=== PATIENT | female | born 1965 ===

== ENCOUNTER 2022-11-18 12:34 | Inpatient (IN) | payer MEDICARE, MEDICAID ==
[2022-11-18] MEDS ORDERED: OLANZapine 7.5 MG TAB PO PRN (13:09)
[2022-11-18] MEDS ORDERED: OLANZapine 10 MG VIAL IM PRN (13:09)
[2022-11-18] MEDS ORDERED: MAG HYDROX/AL HYDROX/SIMETH 30 ML CUP PO PRN (13:09)
[2022-11-18] MEDS ORDERED: hydrOXYzine HCL 25 MG TAB PO PRN (13:09)
[2022-11-18] MEDS ORDERED: MAGNESIUM HYDROXIDE 2,400 MG/30 ML CUP PO PRN (13:09)
[2022-11-18] MEDS ORDERED: hydrOXYzine HCL 50 MG/ML 1 ML VIAL IM PRN (13:09)
[2022-11-18] MEDS ORDERED: ACETAMINOPHEN TAB 325 MG TAB PO PRN (13:09)
[2022-11-18] MEDS ORDERED: DEXTROSE 50% SYRINGE 50 ML IVP PRN ×2 (13:15)
[2022-11-18] MEDS ORDERED: OLANZapine 5 MG TAB PO PRN (13:28)
[2022-11-18 13:39] LABS: Glucose,Whole Blood 293 mg/dL (70-110)
[2022-11-18] MEDS: NICOTINE 14MG/24HR PATCH TRANSDERM SCH (14:26)
[2022-11-18 17:49] LABS: Glucose,Whole Blood 200 mg/dL (70-110)
[2022-11-18] MEDS: INSULIN ASPART (NovoLOG) 100 UNIT/ML VIAL SQ SCH ×2 (17:57→20:24)
[2022-11-18 18:30] LABS: Glucose,Whole Blood 216 mg/dL (70-110)
--- NOTE | 2022-11-18 19:30 | P.CONS ---
History of Present Illness - Reason for Consult Consult date: 11/18/22 - History of Present Illness 49-year-old female with PMH of diabetes mellitus, deafness, blindness, GERD presents to [facility] for mental health concerns. She has been admitted to the medical unit for further management of symptoms. [facility] has been consulted for medical management of this patient. A-team was called on this patient. She was sitting eating dinner when she started to feel lightheaded and nauseated. She was witnessed falling back, someone was able to catch her. Patient reports never losing consciousness. She denies any head trauma. She denies any shaking of extremities, bladder or bowel incontinence, tongue biting. She reports suprapubic discomfort and left-sided flank. She reports dysuria. She denies any headache, fever or chills, cough, chest pain, shortness breath, palpitations, changes in bowel habits. No changes in appetite or weight. She denies any numbness/weakness/tingling of the extremities. Her blood pressure was 112/62, pulse of 69, respiratory rate of 16 and O2 saturation of 95% on room air. Accu-Chek was 216. There is no blood work to review. Pertinent positives and negatives as discussed in HPI, a complete review of systems was performed and all other systems are negative. General: non toxic, no distress, appears at stated age Derm: warm, dry Head: atraumatic, normocephalic, symmetric Eyes: EOMI, no lid lag, anicteric sclera Mouth: no lip lesion, mucus membranes moist Cardiovascular: S1S2 reg, no murmur Lungs: CTA bilateral, no rhonchi, no rales , no accessory muscle use Abdominal: soft, suprapubic tenderness to palpation, no guarding, no appreciable organomegaly, right CVA tenderness Ext: no gross muscle atrophy, no edema, no contractures Neuro: CN II-XI grossly intact except decreased hearing and vision, no focal neuro deficits Psych: Alert, oriented, appropriate affect Presyncope Dysuria and right flank pain Diabetes mellitus Based on my assessment of this patient, this patient meets a high complexity level of care. Patient has an acute diagnosis of presyncope that poses a threat to life or bodily function. Her [id number] glucose was 260. Her vital signs appear stable. She complains of right flank pain and dysuria. Urinalysis with reflex to culture will be ordered. CBC and BMP will be ordered. EKG will be ordered. Troponin will be ordered. Patient be placed on fall precautions. I have reviewed the following information security consultant notes: I have reviewed the results of the following tests: Ltqgv-[id number] glucose as above. I have ordered the following tests: CBC, BMP, EKG, troponin, urinalysis with reflex to culture. I have discussed the care of this patient with the following independent historian: I have independently interpreted the following test below: I have discussed the management of this patient with the following physician: Past Medical History Past Medical History: COPD, Eye Disorder, GERD/Reflux, Hearing Disorder / Deafness, Hypertension History of Any Multi-Drug Resistant Organisms: None Reported Past Surgical History: Unable to Obtain Past Anesthesia/Blood Transfusion Reactions: Unable to Obtain Past Psychological History: Anxiety, Depression Smoking Status: Current every day smoker Past Alcohol Use History: Occasional, Rare Past Drug Use History: None Reported Medications and Allergies Home Medications Medication Instructions Recorded Confirmed Type Insulin Glargine [Lantus Vial] 27 units SQ HS 11/18/22 11/18/22 History Omeprazole [PriLOSEC] 20 mg PO DAILY 11/18/22 11/18/22 History QUEtiapine [SEROquel] 50 mg PO HS 11/18/22 11/18/22 History metFORMIN HCL [Glucophage] 500 mg PO BID 11/18/22 11/18/22 History Allergies Allergy/AdvReac Type Severity Reaction Status Date / Time acetaminophen [From Percocet] Allergy Rash/Hives Verified 11/18/22 12:46 aspirin [From Percodan] Allergy Rash/Hives Verified 11/18/22 12:46 oxycodone [From Percocet] Allergy Rash/Hives Verified 11/18/22 12:46 Physical Exam Vitals: Vital Signs Temp Pulse Resp BP Pulse Ox 11/18/22 15:09 97.4 F L 73 16 111/60 97 Intake and Output 11/18/22 11/18/22 11/18/22 06:59 14:59 22:59 Other: Weight 83 kg 84.17 kg Results Labs: Abnormal Lab Results - Last 24 Hours (Table) 11/18/22 11/18/22 11/18/22 Range/Units 13:36 17:46 18:28 POC Glucose (mg/dL) 293 H 200 H 216 H (70-110) mg/dL
[2022-11-18 19:48] LABS: HCT 39.5 % (34.0-46.0); HGB 13.7 gm/dL (11.4-16.0); MCH 30.2 pg (25.0-35.0); MCHC 34.6 g/dL (31.0-37.0); MCV 87.3 fL (80.0-100.0); Mean Platelet Volume 8.1; Platelet Count 270 k/uL (150-450); RBC 4.52 m/uL (3.80-5.40); RDW 11.9 % (11.5-15.5); WBC 6.6 k/uL (3.8-10.6)
[2022-11-18 19:56] LABS: African American GFR (CKD) 75 (>60 ml/min/1.73 sqM); Anion Gap 5 mmol/L; Blood Urea Nitrogen 18 mg/dL (7-17); Calcium 9.4 mg/dL (8.4-10.2); Carbon Dioxide 28 mmol/L (22-30); Chloride 102 mmol/L (98-107); Glucose 220 mg/dL (74-99); Non-African American GFR(CKD) 65 (>60 ml/min/1.73 sqM); Potassium 4.3 mmol/L (3.5-5.1); Sodium 135 mmol/L (137-145)
[2022-11-18 19:59] LABS: Glucose,Whole Blood 241 mg/dL (70-110)
[2022-11-18 20:12] LABS: Appearance,Urine Clear (Clear); Bilirubin,Urine Negative (Negative); Blood,Urine Negative (Negative); Color,Urine Yellow; Glucose,Urine (UA) 3+ (Negative); Ketones,Urine Negative (Negative); Leukocyte Esterase,Urine Small (Negative); Mucus,Urine Rare /hpf; Nitrite,Urine Negative (Negative); Protein,Urine Negative (Negative); RBC,Urine 1 /hpf (0-5); Specific Gravity,Urine 1.015 (1.001-1.035); Squamous Epithelial Cell,Urine 1 /hpf (0-4); Urobilinogen,Urine <2.0 mg/dL (<2.0); WBC,Urine 3 /hpf (0-5)
[2022-11-18] MEDS: metFORMIN 500 MG TAB PO SCH (20:27)
[2022-11-18] MEDS: INSULIN DETEMIR (LEVEMIR) 100 UNIT/ML SYR SQ SCH (20:27)
[2022-11-18] MEDS ORDERED: QUEtiapine 50 MG TAB PO SCH (21:00)
[2022-11-19 07:33] LABS: Glucose,Whole Blood 176 mg/dL (70-110)
[2022-11-19] MEDS ORDERED: ONDANSETRON ODT 4 MG TAB PO PRN (08:03)
[2022-11-19] MEDS: metFORMIN 500 MG TAB PO SCH ×3 (09:25→20:50)
[2022-11-19] MEDS: INSULIN ASPART (NovoLOG) 100 UNIT/ML VIAL SQ SCH ×5 (09:25→20:47)
[2022-11-19 09:47] LABS: Chol/HDL Ratio 6.66 Ratio; LDL Cholesterol,Calculated 132.6 mg/dL (0.0-131.0)
[2022-11-19] MEDS: PANTOPRAZOLE 40 MG TABLET PO SCH (10:43)
[2022-11-19] MEDS: NICOTINE 14MG/24HR PATCH TRANSDERM SCH (10:43)
[2022-11-19 11:24] LABS: Glucose,Whole Blood 225 mg/dL (70-110)
--- NOTE | 2022-11-19 12:20 | P.HP ---
Psychiatric H&P - . H&P Date: 11/19/22 History & Physical: Allergies Allergy/AdvReac Type Severity Reaction Status Date / Time acetaminophen From Percocet Allergy Rash/Hives Verified 11/18/22 12:46 aspirin From Percodan Allergy Rash/Hives Verified 11/18/22 12:46 oxycodone From Percocet Allergy Rash/Hives Verified 11/18/22 12:46 Vital Signs Temp 98.1 F 11/19/22 07:06 Pulse 65 11/19/22 07:06 Resp 19 11/19/22 07:06 BP 115/61 11/19/22 07:06 Pulse Ox 94 L 11/19/22 07:06 FiO2 Intake & Output 11/18/22 11/19/22 11/19/22 18:59 06:59 18:59 Weight 84.17 kg Laboratory Last Values WBC 6.6 k/uL (3.8-10.6) 11/18/22 19:21 RBC 4.52 m/uL (3.80-5.40) 11/18/22 19:21 Hgb 13.7 gm/dL (11.4-16.0) 11/18/22 19:21 Hct 39.5 % (34.0-46.0) 11/18/22 19:21 MCV 87.3 fL (80.0-100.0) 11/18/22 19:21 MCH 30.2 pg (25.0-35.0) 11/18/22 19:21 MCHC 34.6 g/dL (31.0-37.0) 11/18/22 19:21 RDW 11.9 % (11.5-15.5) 11/18/22 19:21 Plt Count 270 k/uL (150-450) 11/18/22 19:21 MPV 8.1 11/18/22 19:21 Sodium 135 mmol/L (137-145) L 11/18/22 19:21 Potassium 4.3 mmol/L (3.5-5.1) 11/18/22 19:21 Chloride 102 mmol/L (98-107) 11/18/22 19:21 Carbon Dioxide 28 mmol/L (22-30) 11/18/22 19:21 Anion Gap 5 mmol/L 11/18/22 19:21 BUN 18 mg/dL (7-17) H 11/18/22 19:21 Creatinine 0.97 mg/dL (0.52-1.04) 11/18/22 19:21 Est GFR (CKD-EPI)AfAm 75 (>60 ml/min/1.73 sqM) 11/18/22 19:21 Est GFR (CKD-EPI)NonAf 65 (>60 ml/min/1.73 sqM) 11/18/22 19:21 Glucose 220 mg/dL (74-99) H 11/18/22 19:21 POC Glucose (mg/dL) 225 mg/dL (70-110) H 11/19/22 11:21 POC Glu Research Epidemiologist Rao Schafer 11/19/22 11:[address] Glu mg/dL 235 mg/dL 11/18/22 19:21 Hemoglobin A1c 9.8 % (<=6.0) H 11/18/22 19:21 Calcium 9.4 mg/dL (8.4-10.2) 11/18/22 19:21 Troponin I <0.012 ng/mL (0.000-0.034) 11/18/22 19:25 Triglycerides 174.00 mg/dL (0.00-149.00) H 11/18/22 19:21 Cholesterol 197.00 mg/dL (0.00-200.00) 11/18/22 19:21 LDL Cholesterol, Calc 132.6 mg/dL (0.0-131.0) H 11/18/22 19:21 VLDL Cholesterol, Calc 34.80 mg/dL (5.00-40.00) 11/18/22 19:21 HDL Cholesterol 29.60 mg/dL (40.00-60.00) L 11/18/22 19:21 Cholesterol/HDL Ratio 6.66 Ratio 11/18/22 19:21 TSH 2.810 UIU/ML (0.350-5.500) 11/18/22 19:21 Urine Color Yellow 11/18/22 18:41 Urine Appearance Clear (Clear) 11/18/22 18:41 Urine pH 5.0 (5.0-8.0) 11/18/22 18:41 Ur Specific [place] 1.015 (1.001-1.035) 11/18/22 18:41 Urine Protein Negative (Negative) 11/18/22 18:41 Urine Glucose (UA) 3+ (Negative) H 11/18/22 18:41 Urine Ketones Negative (Negative) 11/18/22 18:41 Urine Blood Negative (Negative) 11/18/22 18:41 Urine Nitrite Negative (Negative) 11/18/22 18:41 Urine Bilirubin Negative (Negative) 11/18/22 18:41 Urine Urobilinogen <2.0 mg/dL (<2.0) 11/18/22 18:41 Ur Leukocyte Esterase Small (Negative) H 11/18/22 18:41 Urine RBC 1 /hpf (0-5) 11/18/22 18:41 Urine WBC 3 /hpf (0-5) 11/18/22 18:41 Ur Squamous Epith Cells 1 /hpf (0-4) 11/18/22 18:41 Urine Mucus Rare /hpf (None) H 11/18/22 18:41 11/19/22 12:14 IDENTIFYING DATA: Patient is a 49-year-old female, currently lives with her boyfriend and his mother in a trailer, she has 2 kids, she collects Social Security disability. HPI: Patient presented to the hospital as a transfer from [facility] yesterday. According to APS report patient apparently was endorsing suicidal ideations to overdose on her pills. Patient was also petitioned by a nurse Ingrid before being transferred to the mental health unit. Patient is legally blind and deaf. She uses a walker. She was seen sitting at the bedside today and was fairly pleasant and polite. She was agreeable to speak to food writer today and claims that she has a history of bipolar. She claims that she is feeling fairly depressed lately. Claims that she does have a history of manic episodes. She states she has been off of her Seroquel for "a few weeks" as she has run out of the medications. She claims that she wanted to get back on her medications. She claims that she is feeling depressed, endorsing anxiety as well. States that she is not having suicidal thoughts at this time however was feeling it. She claims that she her main stressor at this time is being blind and having the disability of not being able to walk around and get around safely. She claims that her boyfriend is supportive of her. Claims that her sleep is better with the medications however was poor recently, fair appetite. Patient denies any suicidal or homicidal ideations intent or plan. At this time patient denies any auditory or visual hallucinations. Patient denies any flight of ideas racing thoughts and increased in goal directed behavior. Patient admits to using cigarettes only, no other recreational drug use. PAST PSYCHIATRIC HISTORY: Patient states that she has a history of bipolar disorder. She claims that she is previously on Celexa, latuda, seroquel. Claims that her last psychiatric hospitalization was in April 2019 where she was admitted in [place]. Patient denies any psychiatric outpatient follow-up. She claims that she had 1 suicide attempt in 2019 when she overdosed on pills. PMH: As per internal medicine note ALLERGIES: as per EMR CHEMICAL DEPENDENCY HISTORY: as per HPI FAMILY PSYCHIATRIC/SUBSTANCE USE HISTORY: Claims that both her sister and brother have bipolar disorder SOCIAL HISTORY: Patient was born and raised in [place] and also in [place]. Claims that she completed high school and some college. States that she has 2 kids, she currently lives with her boyfriend and his mom in a trailer. She collects Social Security disability. She denies any legal history. MENTAL STATUS EXAM: General Appearance: Patient appears to be mildly overweight, sitting on the bed, stated age is alert, directable, and attempts to cooperate. Patient appears to have fair hygiene and grooming. Behavior: Patient is seated without any agitated behavior. Attempts to cooperate. Speech: Patient's speech is fluent and nonpressured. Mood/Affect: Patient reports their mood is depressed and anxious, affect is congruent and constricted. Suicidality/Homicidality: Patient denies having any homicidal ideation intent or plan. Denies any suicidal ideations intent or plan Perceptions: Patient denies any visual hallucinations and denies any auditory hallucinations Though content/process: There is no evidence of any delusional thought content and thought process is linear and goal-directed. Focus on her medications and also discharge Memory and concentration: AOX3, grossly intact for the purposes of this session. Can spell "WORLD" backwards Judgment and insight: Poor STRENGTHS/WEAKNESSES: strength is that patient is resilient. Weakness is that patient has poor judgment and is blind and deaf INTELLECT: average IMPRESSIONS: Bipolar disorder, current episode depressed Anxiety disorder unspecified Nicotine dependence PLAN: -Patient is admitted under voluntary status to MHU for stabilization of psychiatric symptoms and safety. Patient has signed adult voluntary form and medication consent and is placed in patient's chart. -Medications : Will start patient on Seroquel 75 mg daily at bedtime for mood stabilization/insomnia, Zoloft 25 mg daily for mood/anxiety, BuSpar 7.5 mg daily for anxiety. -Vistaril and Zyprexa PRN for agitation/aggression -Patient was informed of the risks, benefits and side effects of the medication and patient verbally consented to taking the medications. Patient signed med consent form and was placed in chart. -Internal Medicine consult to perform medical evaluation and physical. -NRT - nicotine patch -SW on board for discharge planning. Encourage patient to participate in groups to work on coping skills. patient will need home health services and likely a home OT evaluation due to her blindness and deafness.
[2022-11-19] MEDS: busPIRone HCl 5 MG TAB PO SCH (13:01)
[2022-11-19 13:07] LABS: Glucose,Whole Blood 229 mg/dL (70-110)
[2022-11-19] MEDS: SERTRALINE 25 MG TAB PO SCH (15:48)
[2022-11-19 20:13] LABS: Glucose,Whole Blood 302 mg/dL (70-110)
[2022-11-19] MEDS: INSULIN DETEMIR (LEVEMIR) 100 UNIT/ML SYR SQ SCH (20:47)
[2022-11-19] MEDS ORDERED: QUEtiapine 25 MG TAB PO SCH (21:00)
[2022-11-20 08:03] LABS: Glucose,Whole Blood 109 mg/dL (70-110)
[2022-11-20] MEDS: busPIRone HCl 5 MG TAB PO SCH (08:38)
[2022-11-20] MEDS: metFORMIN 500 MG TAB PO SCH ×2 (08:38→21:13)
[2022-11-20] MEDS: NICOTINE 14MG/24HR PATCH TRANSDERM SCH (08:38)
[2022-11-20] MEDS: PANTOPRAZOLE 40 MG TABLET PO SCH (08:38)
[2022-11-20] MEDS: INSULIN ASPART (NovoLOG) 100 UNIT/ML VIAL SQ SCH ×4 (08:38→21:16)
[2022-11-20] MEDS: SERTRALINE 25 MG TAB PO SCH (08:39)
--- NOTE | 2022-11-20 10:14 | P.PN ---
Progress Note - Text Progress Note Date: 11/20/22 Interval history: Patient was seen lying in bed this morning and was directable and agreeable to speak with va underwriter. Patient claims that she was sleeping "on and off" last night and we spoke more about her medications. He spoke about increasing the [place] which she was okay with. She claims that she is also feeling uncomfortable in her abdomen and her pelvic region as well and states that she has had urinary tract infections before and claims that she feels she has one at this time however failed to give specifics. She states that it does have a certain order. Claims that she did give a urine sample again this morning. She claims that she has been eating fairly, mood has been mildly improving since yesterday. Store Planner addressed further concerns and answered questions about her medications and treatment and also discharge planning. At this time patient denies any suicidal or homicidal ideations intent or plan. Denies any Auditory or visual hallucinations. Patient denies any side effects from the medications and has been compliant with meds. Mental status exam: General Appearance: Patient appears to be living in bed, stated age is alert, directable, and cooperative. Behavior: No agitated behavior. Patient is calm and directable cooperative. Speech: Patient's speech is fluent and nonpressured. Mood/Affect: Mood is improving mildly, affect is congruent and constricted. Suicidality/Homicidality: Patient denies having any suicidal or homicidal ideation intent or plan. Perceptions: Patient denies any auditory or visual hallucinations. Though content/process: There is no evidence of any delusional thought content and thought process is linear and goal-directed. [place]. Focused on her symptoms. Memory and concentration: AOX3, grossly intact for the purposes of this session Judgment and insight: improving mildly Assessment/Plan: Continue with current diagnosis. Patient continues to meet criteria for inpatient psychiatric admission for symptom stabilization and safety.Patient will be maintained on current psychotropic medication regimen, with the exception of increasing Seroquel to 100 mg daily at bedtime for mood stabilization/insomnia, increasing BuSpar to 10 mg daily for anxiety, empirically added antibiotic Macrobid 100 mg twice a day for 7 days for UTI, awaiting urine analysis. Monitor for medication compliance and for any psychotropic medication side effects. Will continue to monitor ongoing response to treatment. Encouraged participation in milieu.
[2022-11-20] MEDS: NITROFURANTOIN MONOHYD/M-CRYST 100 MG CAP PO SCH ×2 (11:05→21:18)
[2022-11-20 12:56] LABS: Glucose,Whole Blood 130 mg/dL (70-110)
[2022-11-20 18:01] LABS: Glucose,Whole Blood 147 mg/dL (70-110)
[2022-11-20 20:17] LABS: Glucose,Whole Blood 230 mg/dL (70-110)
[2022-11-20] MEDS: INSULIN DETEMIR (LEVEMIR) 100 UNIT/ML SYR SQ SCH (21:13)
[2022-11-20] MEDS: QUEtiapine 100 MG TAB PO SCH (21:13)
[2022-11-21 07:39] LABS: Glucose,Whole Blood 112 mg/dL (70-110)
[2022-11-21] MEDS: INSULIN ASPART (NovoLOG) 100 UNIT/ML VIAL SQ SCH ×4 (08:42→20:02)
[2022-11-21] MEDS: metFORMIN 500 MG TAB PO SCH ×2 (08:46→21:11)
[2022-11-21] MEDS: PANTOPRAZOLE 40 MG TABLET PO SCH (08:46)
[2022-11-21] MEDS: SERTRALINE 25 MG TAB PO SCH (08:46)
[2022-11-21] MEDS: busPIRone HCl 10 MG TAB PO SCH (08:46)
[2022-11-21] MEDS: NITROFURANTOIN MONOHYD/M-CRYST 100 MG CAP PO SCH ×2 (08:47→21:11)
[2022-11-21] MEDS: NICOTINE 14MG/24HR PATCH TRANSDERM SCH (10:29)
--- NOTE | 2022-11-21 12:08 | P.PN ---
Progress Note - Text Progress Note Date: 11/21/22 Interval history: Patient was seen l sitting in on group today and was agreeable to speak to marvin roach. Patient claims that her mood has been mildly improving and also her anxiety. She states that she is finding it a little distressing walking to the hallways and not knowing where she was going. She claims that she feels her medications are heading in a good direction. She continues to ask several questions about her potential discharge in the planning associated with it. She also states that she wants to speak with a social service manager. Claims that she does not have a ride back home. States that she was able to sleep fairly last night. Continues to have minor urinary symptoms however does state overall they're improving mildly since yesterday. She claims that she has been eating fairly, mood has been mildly improving since yesterday. At this time patient denies any suicidal or homicidal ideations intent or plan. Denies any Auditory or visual hallucinations. Patient denies any side effects from the medications and has been compliant with meds. Mental status exam: General Appearance: Patient appears to be living in bed, stated age is alert, directable, and cooperative. Behavior: No agitated behavior. Patient is calm and directable cooperative. Speech: Patient's speech is fluent and nonpressured. Mood/Affect: Mood is improving mildly, affect is congruent improving Suicidality/Homicidality: Patient denies having any suicidal or homicidal ideation intent or plan. Perceptions: Patient denies any auditory or visual hallucinations. Though content/process: There is no evidence of any delusional thought content and thought process is linear and goal-directed. Focused on discharge planning Memory and concentration: AOX3, grossly intact for the purposes of this session Judgment and insight: improving mildly Assessment/Plan: Continue with current diagnosis. Patient continues to meet criteria for inpatient psychiatric admission for symptom stabilization and safety.Patient will be maintained on current psychotropic medication regimen, continue with Seroquel 100 mg daily at bedtime for mood stabilization/insomnia, BuSpar 10 mg daily for anxiety, continue with Macrobid 100 mg twice a day for 7 days for UTI. increased zoloft to 50 mg daily for mood/anxiety. Monitor for medication compliance and for any psychotropic medication side effects. Will continue to monitor ongoing response to treatment. Encouraged participation in milieu.
[2022-11-21 12:41] LABS: Glucose,Whole Blood 123 mg/dL (70-110)
[2022-11-21 18:03] LABS: Glucose,Whole Blood 163 mg/dL (70-110)
[2022-11-21 19:51] LABS: Glucose,Whole Blood 209 mg/dL (70-110)
[2022-11-21] MEDS: INSULIN DETEMIR (LEVEMIR) 100 UNIT/ML SYR SQ SCH (21:11)
[2022-11-21] MEDS: QUEtiapine 100 MG TAB PO SCH (21:11)
[2022-11-22 07:50] LABS: Glucose,Whole Blood 122 mg/dL (70-110)
[2022-11-22] MEDS: INSULIN ASPART (NovoLOG) 100 UNIT/ML VIAL SQ SCH ×4 (08:01→21:24)
[2022-11-22] MEDS: PANTOPRAZOLE 40 MG TABLET PO SCH (08:40)
[2022-11-22] MEDS: busPIRone HCl 10 MG TAB PO SCH ×2 (08:40→21:23)
[2022-11-22] MEDS: metFORMIN 500 MG TAB PO SCH ×2 (08:40→21:24)
[2022-11-22] MEDS: NITROFURANTOIN MONOHYD/M-CRYST 100 MG CAP PO SCH ×2 (08:41→21:24)
[2022-11-22] MEDS: NICOTINE 14MG/24HR PATCH TRANSDERM SCH (08:41)
[2022-11-22] MEDS: SERTRALINE 50 MG TAB PO SCH (08:41)
--- NOTE | 2022-11-22 11:21 | P.PN ---
Progress Note - Text Progress Note Date: 11/22/22 Interval history: Patient was seen sitting at the side of her bed today and was scribbled typewriter tester. Patient claims that she is feeling a bit anxious today, continues to have several questions about her discharge planning. States that her mood has been gradually improving. States that she did not sleep well last night. We spoke about other methods to help her with sleep and patient states that melatonin has not helped her in the past. Patient claims that her urinary symptoms are mildly improving since yesterday and we spoke about continuing on with the antibiotic. States that she is trying to go to some groups however was worried about whether she is making enough groups or not. Continues to find it difficult to navigate around the unit due to her blindness. At this time patient denies any suicidal or homicidal ideations intent or plan. Denies any Auditory or visual hallucinations. Patient denies any side effects from the medications and has been compliant with meds. Mental status exam: General Appearance: Patient appears to be living in bed, stated age is alert, d irectable, and cooperative. Behavior: No agitated behavior. Patient is calm and directable cooperative. Speech: Patient's speech is fluent and nonpressured. Mood/Affect: Mood is improving mildly, affect is congruent improving Suicidality/Homicidality: Patient denies having any suicidal or homicidal ideation intent or plan. Perceptions: Patient denies any auditory or visual hallucinations. Though content/process: There is no evidence of any delusional thought content and thought process is linear and goal-directed. Focused on discharge planning Memory and concentration: AOX3, grossly intact for the purposes of this session Judgment and insight: improving mildly Assessment/Plan: Continue with current diagnosis. Patient continues to meet criteria for inpatient psychiatric admission for symptom stabilization and safety.Patient will be maintained on current psychotropic medication regimen, continue with Seroquel 100 mg daily at bedtime for mood stabilization/insomnia, increase BuSpar 10 mg BID for anxiety, continue with Macrobid 100 mg twice a day for 7 days for UTI. continue zoloft 50 mg daily for mood/anxiety. Monitor for medication compliance and for any psychotropic medication side effects. Will continue to monitor ongoing response to treatment. Encouraged participation in milieu. SW to plan for discharge tomorrow back home with follow up in [facility].
[2022-11-22 12:38] LABS: Glucose,Whole Blood 128 mg/dL (70-110)
[2022-11-22 13:54] VITALS: BMI 30.5
[2022-11-22 17:33] LABS: Glucose,Whole Blood 165 mg/dL (70-110)
[2022-11-22 20:12] LABS: Glucose,Whole Blood 198 mg/dL (70-110)
[2022-11-22] MEDS: QUEtiapine 100 MG TAB PO SCH (21:24)
[2022-11-22] MEDS: INSULIN DETEMIR (LEVEMIR) 100 UNIT/ML SYR SQ SCH (21:25)
[2022-11-23 07:09] VITALS: BP 123/55; PULSE 52; RESP 16; TEMP 97.9
[2022-11-23 07:48] LABS: Glucose,Whole Blood 115 mg/dL (70-110)
[2022-11-23] MEDS: INSULIN ASPART (NovoLOG) 100 UNIT/ML VIAL SQ SCH ×2 (08:35→13:47)
[2022-11-23] MEDS: NITROFURANTOIN MONOHYD/M-CRYST 100 MG CAP PO SCH (08:36)
[2022-11-23] MEDS: busPIRone HCl 10 MG TAB PO SCH (08:36)
[2022-11-23] MEDS: NICOTINE 14MG/24HR PATCH TRANSDERM SCH (08:36)
[2022-11-23] MEDS: PANTOPRAZOLE 40 MG TABLET PO SCH (08:36)
[2022-11-23] MEDS: metFORMIN 500 MG TAB PO SCH (08:36)
[2022-11-23] MEDS: SERTRALINE 50 MG TAB PO SCH (08:36)
[2022-11-23] MEDS ORDERED: risperiDONE 1 MG TAB PO SCH (10:30)
--- NOTE | 2022-11-23 10:37 | P.DS ---
Providers Date of admission: 11/18/22 13:03 Expected date of discharge: 11/23/22 Attending physician: Geoffrey Novoa MD Consults: 11/18/22 13:09 Consult Physician Routine Consulting Provider: Preston Fermin Consult Reason/Comments: H and P Do you want consulting provider notified?: Yes Primary care physician: Yannick Hong - Discharge Diagnosis(es) (1) Bipolar disorder current episode depressed Current Visit: Yes Status: Acute Priority: High (2) Anxiety disorder Current Visit: Yes Status: Acute Priority: High (3) Nicotine dependence Current Visit: Yes Status: Acute Priority: Low (4) Legal blindness Current Visit: Yes Status: Acute Priority: Medium (5) Deafness Current Visit: Yes Status: Acute Priority: Medium Hospital Course: Admission HPI: Admission note was completed by commercial real estate underwriter "Patient is a 49-year-old female, currently lives with her boyfriend and his mother in a trailer, she has 2 kids, she collects Social Security disability. Patient presented to the hospital as a transfer from [facility] yesterday. According to APS report patient apparently was endorsing suicidal ideations to overdose on her pills. Patient was also petitioned by a nurse Ingrid before being transferred to the mental health unit. Patient is legally blind and deaf. She uses a walker. She was seen sitting at the bedside today and was fairly pleasant and polite. She was agreeable to speak to commercial real estate underwriter today and claims that she has a history of bipolar. She claims that she is feeling fairly depressed lately. Claims that she does have a history of manic episodes. She states she has been off of her Seroquel for "a few weeks" as she has run out of the medications. She claims that she wanted to get back on her medications. She claims that she is feeling depressed, endorsing anxiety as well. States that she is not having suicidal thoughts at this time however was feeling it. She claims that she her main stressor at this time is being blind and having the disability of not being able to walk around and get around safely. She claims that her boyfriend is supportive of her. Claims that her sleep is better with the medications however was poor recently, fair appetite. Patient denies any suicidal or homicidal ideations intent or plan. At this time patient denies any auditory or visual hallucinations. Patient denies any flight of ideas racing thoughts and increased in goal directed behavior. Patient admits to using cigarettes only, no other recreational drug use." Hospital course: Upon admission to the unit patient was directable and agreeable to commence treatment and signed adult voluntary form. Patient got along well with other patients on the unit and followed unit protocol. Patient was compliant with the medications and denied any side effects throughout hospital course. Patient was started on Seroquel and increased to a dose of 100 mg daily at bedtime for bipolar disorder/mood stabilization/insomnia, BuSpar increased to a dose of 10 mg 3 times a day for anxiety, Zoloft 50 mg daily for mood/anxiety. Patient spoke of her stressors and engaged in therapy both group and individual. Patient was also seen by medical team for history and physical exam. Patient was treated empirically for UTI with Macrobid, symptoms were gradually improving and will be continued on for 5 more days after discharge. if her uti/urinary sx are not resolving then she was asked to f/u with her primary care doctor. Throughout the course of the hospitalization patient gradually improved with regards to mood, anxiety, suicidal thoughts, sleep and became more future oriented with improved insight and judgment. On the day of discharge patient denied any suicidal or homicidal ideations intent or plan denied any auditory or visual hallucinations. Patient endorsed wanting to live for her life and her health. The patient denied any access to guns or weapons. Patient denied any paranoia and did not endorse any delusions. Patient does not have a significant history of substance abuse and was counseled on abstaining from all substances including alcohol and marijuana. Patient was also counseled on the medications and need for regular compliance and was encouraged to follow-up with their outpatient appointment for mental health and also for primary care. Prior to discharge a family meeting will be arranged by social scientist to answer any questions and ensure safety upon discharge. Patient will be following up with [facility] [place] and social work will help with arranging appointments and also potentially help patient with arranging home health services. Patient also need to have a ride back to her home today from the hospital. Mental status exam: General Appearance: Patient appears to be mildly overweight, wearing glasses, stated age is alert, pleasant, and cooperative. Patient is in no acute distress and has improved hygiene and grooming Behavior: Patient is calmly seated without any agitated behavior. Speech: Patient's speech is fluent and nonpressured. Mood/Affect: Patient reports their mood is "better", affect is congruent Suicidality/Homicidality: Patient denies having any suicidal or homicidal ideation intent or plan. Perceptions: Patient denies any auditory or visual hallucinations. Though content/process: There is no evidence of any delusional thought content and thought process is linear and goal-directed. more future oriented Memory and concentration: AOX3, grossly intact for the purposes of this session. Can spell "WORLD" backwards correctly. Judgment and insight: improved with guarded prognosis Impression: Bipolar disorder, current episode depressed Anxiety disorder unspecified Nicotine dependence Legal blindness Deafness Plan: -Continue with discharge today as patient has improved and stabilized psychiatrically and is not currently an imminent threat to herself and/or others. Patient will remain at chronically elevated risk for harm to self and/or others due to her impulsivity. -Continue medications: Seroquel 100 mg daily at bedtime for mood stabilization/insomnia, BuSpar 10 mg twice a day for anxiety, Zoloft 50 mg daily for mood/anxiety, continue on with Macrobid twice a day for 5 more days for UTI symptoms. Patient was asked to follow-up with her primary care doc if she is continuing to have urinary symptoms. -Patient was counseled on the need for medication compliance and appropriate follow-up at mental health and also primary care for medical issues. Patient verbalized understanding and agreed. -Social work to arrange for and conduct family meeting to ensure safety upon discharge and answer any questions/concerns. Social work also to arrange for patients follow up appointments with [facility] [place] for psychiatric care along with follow up with primary care provider. -Patient counseled on abstaining from recreational drugs and marijuana and alcohol. Was informed/educated on the adverse effects on their physical and mental health. Patient verbally agreed and understood. -Patient was instructed to return to the hospital or seek immediate medical care if their psychiatric or medical symptoms do worsen or reoccur. Allergies Allergy/AdvReac Type Severity Reaction Status Date / Time acetaminophen [From Percocet] Allergy Rash/Hives Verified 11/18/22 12:46 aspirin [From Percodan] Allergy Rash/Hives Verified 11/18/22 12:46 oxycodone [From Percocet] Allergy Rash/Hives Verified 11/18/22 12:46 Laboratory Results WBC 6.6 k/uL (3.8-10.6) 11/18/22 19:21 RBC 4.52 m/uL (3.80-5.40) 11/18/22 19:21 Hgb 13.7 gm/dL (11.4-16.0) 11/18/22 19:21 Hct 39.5 % (34.0-46.0) 11/18/22 19:21 MCV 87.3 fL (80.0-100.0) 11/18/22 19:21 MCH 30.2 pg (25.0-35.0) 11/18/22 19:21 MCHC 34.6 g/dL (31.0-37.0) 11/18/22 19:21 RDW 11.9 % (11.5-15.5) 11/18/22 19:21 Plt Count 270 k/uL (150-450) 11/18/22 19:21 MPV 8.1 11/18/22 19:21 Sodium 135 mmol/L (137-145) L 11/18/22 19:21 Potassium 4.3 mmol/L (3.5-5.1) 11/18/22 19:21 Chloride 102 mmol/L (98-107) 11/18/22 19:21 Carbon Dioxide 28 mmol/L (22-30) 11/18/22 19:21 Anion Gap 5 mmol/L 11/18/22 19:21 BUN 18 mg/dL (7-17) H 11/18/22 19:21 Creatinine 0.97 mg/dL (0.52-1.04) 11/18/22 19:21 Est GFR (CKD-EPI)AfAm 75 (>60 ml/min/1.73 sqM) 11/18/22 19:21 Est GFR (CKD-EPI)NonAf 65 (>60 ml/min/1.73 sqM) 11/18/22 19:21 Glucose 220 mg/dL (74-99) H 11/18/22 19:21 POC Glucose (mg/dL) 115 mg/dL (70-110) H 11/23/22 07:47 POC Glu Civil Manager ID Kashif Adrian 11/23/22 07:[address] Glu mg/dL 235 mg/dL 11/18/22 19:21 Hemoglobin A1c 9.8 % (<=6.0) H 11/18/22 19:21 Calcium 9.4 mg/dL (8.4-10.2) 11/18/22 19:21 Troponin I <0.012 ng/mL (0.000-0.034) 11/18/22 19:25 Triglycerides 174.00 mg/dL (0.00-149.00) H 11/18/22 19:21 Cholesterol 197.00 mg/dL (0.00-200.00) 11/18/22 19:21 LDL Cholesterol, Calc 132.6 mg/dL (0.0-131.0) H 11/18/22 19:21 VLDL Cholesterol, Calc 34.80 mg/dL (5.00-40.00) 11/18/22 19:21 HDL Cholesterol 29.60 mg/dL (40.00-60.00) L 11/18/22 19:21 Cholesterol/HDL Ratio 6.66 Ratio 11/18/22 19:21 TSH 2.810 UIU/ML (0.350-5.500) 11/18/22 19:21 Urine Color Yellow 11/18/22 18:41 Urine Appearance Clear (Clear) 11/18/22 18:41 Urine pH 5.0 (5.0-8.0) 11/18/22 18:41 Ur Specific [place] 1.015 (1.001-1.035) 11/18/22 18:41 Urine Protein Negative (Negative) 11/18/22 18:41 Urine Glucose (UA) 3+ (Negative) H 11/18/22 18:41 Urine Ketones Negative (Negative) 11/18/22 18:41 Urine Blood Negative (Negative) 11/18/22 18:41 Urine Nitrite Negative (Negative) 11/18/22 18:41 Urine Bilirubin Negative (Negative) 11/18/22 18:41 Urine Urobilinogen <2.0 mg/dL (<2.0) 11/18/22 18:41 Ur Leukocyte Esterase Small (Negative) H 11/18/22 18:41 Urine RBC 1 /hpf (0-5) 11/18/22 18:41 Urine WBC 3 /hpf (0-5) 11/18/22 18:41 Ur Squamous Epith Cells 1 /hpf (0-4) 11/18/22 18:41 Urine Mucus Rare /hpf (None) H 11/18/22 18:41 Vital Signs Temp 97.9 F 11/23/22 07:08 Pulse 52 L 11/23/22 07:08 Resp 16 11/23/22 07:08 BP 123/55 11/23/22 07:08 Pulse Ox 97 11/23/22 07:08 FiO2 Intake & Output 11/22/22 11/23/22 11/23/22 18:59 06:59 18:59 Weight 85.8 kg Patient Condition at Discharge: Stable Plan - Discharge Summary Discharge Rx Participant: No New Discharge Prescriptions: New busPIRone HCl [Buspar] 10 mg PO BID 30 Days #60 tab QUEtiapine [SEROquel] 100 mg PO HS 30 Days #30 tab Nicotine 14Mg/24Hr Patch [Habitrol] 1 patch TRANSDERM DAILY 14 Days #14 patch Nitrofurantoin Monohyd/M-Cryst [Macrobid] 100 mg PO BID 5 Days #10 cap INSULIN ASPART (NovoLOG) [NovoLOG (formulary)] 0 unit SQ ACHS each Sertraline [Zoloft] 50 mg PO DAILY 30 Days #30 tab Continue metFORMIN HCL [Glucophage] 500 mg PO BID 30 Days #60 tab Insulin Glargine [Lantus Vial] 27 units SQ HS 30 Days #1 each Omeprazole [PriLOSEC] 20 mg PO DAILY 30 Days #30 cap Discontinued QUEtiapine [SEROquel] 50 mg PO HS Discharge Medication List INSULIN ASPART (NovoLOG) [NovoLOG (formulary)] 0 unit SQ ACHS each 11/23/22 [Rx] Insulin Glargine [Lantus Vial] 27 units SQ HS 30 Days #1 each 11/23/22 [Rx] Nicotine 14Mg/24Hr Patch [Habitrol] 1 patch TRANSDERM DAILY 14 Days #14 patch 11/23/22 [Rx] Nitrofurantoin Monohyd/M-Cryst [Macrobid] 100 mg PO BID 5 Days #10 cap 11/23/22 [Rx] Omeprazole [PriLOSEC] 20 mg PO DAILY 30 Days #30 cap 11/23/22 [Rx] QUEtiapine [SEROquel] 100 mg PO HS 30 Days #30 tab 11/23/22 [Rx] Sertraline [Zoloft] 50 mg PO DAILY 30 Days #30 tab 11/23/22 [Rx] busPIRone HCl [Buspar] 10 mg PO BID 30 Days #60 tab 11/23/22 [Rx] metFORMIN HCL [Glucophage] 500 mg PO BID 30 Days #60 tab 11/23/22 [Rx] Follow up Appointment(s)/Referral(s): Ingrid RAMOS [Other] - 11/25/22 9:00 am () Activity/Diet/Wound Care/Special Instructions: Avoid the use of street drugs and alcohol. Take all medications as prescribed. When you are in need of refills on your medications, please contact your medical provider and/or outpatient psychiatrist to have this done. Please go to scheduled outpatient appointments for aftercare treatment. If symptoms return or become worse, call the crisis line at and/or go to the nearest emergency room for evaluation. Discharge Disposition: HOME SELF-CARE
[2022-11-23 12:49] LABS: Glucose,Whole Blood 110 mg/dL (70-110)
== END 2022-11-23 14:00 | disposition home or self-care (01) | DRG 885 ==
LOC: 3MHU 13:03
PROVIDERS: ADMIT Psychiatry & Neurology Psychiatry; ATTEND Psychiatry & Neurology Psychiatry
DX: F31.30 Bipolar disorder, current episode depressed, mild or moderate severity, unspecified (principal); R45.851 Suicidal ideations; N39.0 Urinary tract infection, site not specified; E11.9 Type 2 diabetes mellitus without complications; J44.9 Chronic obstructive pulmonary disease, unspecified; Z79.4 Long term (current) use of insulin; F41.9 Anxiety disorder, unspecified; H54.8 Legal blindness, as defined in USA; H91.90 Unspecified hearing loss, unspecified ear; I10 Essential (primary) hypertension; G47.00 Insomnia, unspecified; K21.9 Gastro-esophageal reflux disease without esophagitis; F17.210 Nicotine dependence, cigarettes, uncomplicated; Z71.6 Tobacco abuse counseling; Z79.84 Long term (current) use of oral hypoglycemic drugs; Z79.899 Other long term (current) drug therapy; Z88.6 Allergy status to analgesic agent; Z88.5 Allergy status to narcotic agent; Z81.8 Family history of other mental and behavioral disorders
CPT/HCPCS: 80048; 80061; 81001; 83036; 84443; 84484; 85027; 93005